=== PATIENT | female | born 1945 | race Caucasian/White ===

== ENCOUNTER 2016-10-14 13:12 | Emergency (ER) | payer BC, MEDICARE ==
[2016-10-14] MEDS ORDERED: Nitroglycerin 2% Ointment 1 INCH/1 GM Packet ONE (13:38)
[2016-10-14 13:45] LABS: #Basophils 0.1 thou/uL (0.0-0.2); #Eosinphils 0.1 thou/uL (0.0-0.7); #Lymphocytes 2.9 thou/uL (1.20-3.40); #Monocytes 0.4 thou/uL (0.11-0.59); #Neutrophils 4.8 thou/uL (1.40-6.50); %Eosinophils 1.6 % (0.0-10.0); %Monocytes 4.9 % (0.0-10.0); Hematocrit 47.8 % (36.0-47.0); Mean Platelet Volume 8.1 fL (7.4-10.4); Red Blood Cell (RBC) Count 5.08 mill/uL (4.20-5.40); White Blood Cell (WBC) Count 8.3 thou/uL (4.8-10.8)
[2016-10-14 13:58] LABS: ALT (SGPT) 12 U/L (0-55); AST (SGOT) 15 U/L (5-34); Alkaline Phosphatase 91 U/L (40-150); Anion Gap 14 mmol/L (10-20); BUN (Urea Nitrogen) 7 mg/dL (9.8-20.1); Bilirubin, Total 0.5 mg/dL (0.2-1.2); CK (CPK) 32 U/L (29-168); Calc. Creatinine Clearance 0 mL/min (70-130); Calcium 9.9 mg/dL (7.8-10.44); Carbon Dioxide 26 mmol/L (23-31); Chloride 102 mmol/L (98-107); Estimated GFR-MDRD 86; Globulin 2.9 g/dL (2.4-3.5); Lipase 33 U/L (8-78); Protein, Total 6.8 g/dL (5.8-8.1); Troponin I Less than 0.010 ng/mL (< 0.028)
--- NOTE | 2016-10-14 15:26 | RAD ---
PORTABLE CHEST: Date: 10/14/16 No prior films available for comparison. An AP portable film at 1333 hours shows a normal sized heart and normal vascularity. There are no ef fusions. No focal infiltrates are seen. Dense overlying breast tissue partially obscures some parenc hymal areas of each lung. No gross infiltrates appreciated. IMPRESSION: No acute findings. POS: HOME
--- NOTE | 2016-10-14 15:51 | ERRECORD ---
HEALTH SYSTEM EMERGENCY RECORD HPI CHEST PAIN (14:11 MBRI) CHIEF COMPLAINT: Patient presents for evaluation of chest pain, that was present but has now resolved. HISTORIAN: History provided by patient, History provided by patient's family. LOCATION: Symptoms are localized, most severe in epigastric area, No radiation of pain, Pain has not moved in location over time. QUALITY: Pain is dull in nature, described as pressure-like. SEVERITY: Maximum severity of symptoms moderate, Currently there are no symptoms. TIME COURSE: Gradual onset of symptoms, Symptoms are improving, are intermittent, Pt with initial episode this am at around 0230 hrs that lasted approx. 45 min and was relieved after she took a full strength asa. She had a repeat episode then later in the am and she again took a full asa. ASSOCIATED WITH: Associated with chills, No associated cough, Associated with diaphoresis, No associated fever, No associated nausea, No associated palpitations, Associated with shortness of breath, No associated trauma, No associated upper respiratory infection, No associated vomiting. EXACERBATED BY: Patient's condition exacerbated by nothing. RELIEVED BY: Patient's condition relieved by nothing. RISK FACTORS: Coronary artery disease risk factors, include family history, include hypertension, include smoking, Thoracic aortic dissection risk factors, include hypertension, No pulmonary embolism risk factors. HEART SCORE: Patients history is Moderately Suspicious (1), Patients ECG is normal (0), Patients age is equal to or greater than 65 years (2), Patient has 1 or 2 risk factors (1), Patients Troponin is equal to or less than 1 times the normal limit (0), Total 4. WELLS CRITERIA FOR PE: No clinical signs and symptoms of a DVT (0), Patient does not have, or is likely to not have, a primary diagnosis of PE (0), Patient's heart rate is less than 100 (0), Patient has no history of immobilization within 3 days, nor any surgical history within the past 4 weeks (0), Patient has not had an objectively diagnosed PE or DVT previously (0), Patient does not have hemoptysis (0), Patient has not had treatment for malignancy within the last 6 months, nor palliative (0), Total 0. ROS (13:23 MBRI) CONSTITUTIONAL: Negative constitutional review of systems, Historian denies chills, denies fever. EYES: Historian denies eye pain, denies photophobia, denies vision changes. ENT: Historian denies dysphagia, denies dysphasia, denies dysphonia, denies rhinorrhea, Historian denies sore throat. &a-1R&a+25V*p+0X*d4292Y*c202B*c15G*c2P*p-0X&a-25V&a+1R Name: Modesta Chaparro : 1945 F70 MedRec: [id number] AcctNum: [id number] Prepared: FriOct 14, 2016 15:45 by Interface Page 1 of 4 pMD [facility] EMERGENCY RECORD CARDIOVASCULAR: Historian reports chest pain, no radiation, Historian reports diaphoresis, denies dyspnea on exertion, denies edema, denies orthopnea, denies paroxysmal nocturnal dyspnea, denies syncope, denies palpitations. lightheadedness noted with the pain event. RESPIRATORY: Historian denies cough, denies shortness of breath, denies sputum, denies stridor, denies wheezing. GI: Negative gastrointestinal review of systems, Historian denies abdominal pain, denies diarrhea, denies nausea, denies vomiting. GENITOURINARY FEMALE: Historian denies dysuria, denies frequency, denies hematuria, denies urinary retention. MUSCULOSKELETAL: Historian denies injury, Denies any musculoskeletal pain. SKIN: Negative skin review of systems, Historian denies skin changes. NEUROLOGIC: Negative neurologic review of systems, Historian denies focal weakness, denies sensory changes. HEMO/LYMPHATIC: Historian denies abnormal blood clotting, denies easy bruising. PAST MEDICAL HISTORY (13:34 LGIB) MEDICAL HISTORY: No past medical history. FEMALE SURGICAL HISTORY: back, Surgical history of appendectomy, Surgical history of hernia repair, Surgical history of hysterectomy, Surgical history of tonsillectomy. PSYCHIATRIC HISTORY: No previous psychiatric history. SOCIAL HISTORY: Patient drinks socially, Patient denies drug use, Patient currently uses tobacco, smokes cigarettes, Patient smokes 1 pack per day. KNOWN ALLERGIES morphine Penicillins CURRENT MEDICATIONS (13:34 LGIB) None VITAL SIGNS VITAL SIGNS: BP: 137/75, Pulse: 72, Resp: 18 (Non-Labored), Pain: 0, O2 sat: 97 on Room Air, Time: 10/14/2016 13:20. (13:20 LGIB) Temp: 98.1 (Oral), Time: 10/14/2016 13:35. (13:35 KMOR) BP: 126/71, Pulse: 69, Resp: 19, Pain: 0, O2 sat: 96 on Room Air, Time: 10/14/2016 13:30. (13:30 KMOR) BP: 123/63, Pulse: 68, Resp: 18, Pain: 0, O2 sat: 94 on Room Air, Time: 10/14/2016 14:01. (14:01 KMOR) BP: 127/67, Pulse: 70, Resp: 16, Pain: 0, O2 sat: 95 on Room Air, Time: 10/14/2016 14:30. (14:30 KMOR) BP: 139/96, Pulse: 93, Resp: 16, Pain: 0, O2 sat: 93 on Room Air, Time: 10/14/2016 14:45. (14:45 KMOR) &a-1R&a+25V*p+0X*[id number]*c202B*c15G*c2P*p-0X&a-25V&a+1R Name: Modesta Chaparro : 1945 F70 MedRec: [id number] AcctNum: [id number] Prepared: FriOct 14, 2016 15:45 by Interface Page 2 of 4 p[facility] EMERGENCY RECORD PHYSICAL EXAM (13:23 MBRI) CONSTITUTIONAL: Vital Signs Reviewed, Nursing notes reviewed. HEAD: Head exam included findings of head atraumatic, normocephalic. EYES: Eye exam included findings of eyelids normal to inspection, Pupils equally round and reactive to light, Extraocular muscles intact. ENT: Pharynx exam normal, Mouth exam normal. NECK: Neck exam normal, Neck exam included findings of normal range of motion, Trachea midline. RESPIRATORY CHEST: Respiratory exam included findings of no respiratory distress, Breath sounds clear, No wheezing, No rales, No rhonchi. CARDIOVASCULAR: Cardiovascular exam included findings of heart rate regular rate and rhythm, Heart sounds normal, normal S1, normal S2, no murmurs, Carotids normal, Abdominal aorta normal, Femoral pulses normal. ABDOMEN FEMALE: Abdominal exam included findings of abdomen nontender, Bowel sounds normal, no distension, no mass, no pulsatile masses, no peritoneal signs, no rigidity, no guarding, no rebound. BACK: Back exam included findings of normal inspection, no tenderness. UPPER EXTREMITY: Upper extremity exam included findings of inspection normal, Range of motion normal, Motor strength normal, Radial pulse normal, no cyanosis, no clubbing, no edema. LOWER EXTREMITY: Lower extremity exam included findings of inspection normal, Range of motion normal, Motor strength normal, Pedal pulse normal, no cyanosis, no clubbing, no edema, Normal pop pulses saniya noted. NEURO: Neuro exam findings include patient oriented to person, place and time, Speech normal, Gait normal. SKIN: Skin exam included findings of skin warm, dry, and normal in color. PSYCHIATRIC: Psychiatric exam included findings of patient oriented to person place and time, Normal affect. EKG INTERPRETATION 12 LEAD EKG INTERPRETATION: 12 lead EKG shows normal sinus rhythm, Rate (beats per minute): 69, with no ectopics, Conduction normal, T waves, inverted, Leads affected: I, Leads affected: aVl, Leads affected: V1, Leads affected: V2, Liberty, indeterminate, Other findings include:, septal and lateral infarct, age undetermined., suspect arm lead reversal. (13:24 MBRI) 12 lead EKG interpreted by Emergency Department Physician at time of study, 12 lead EKG shows normal sinus rhythm, Rate (beats per minute): 69, with no ectopics, Conduction normal, ST segments normal, T waves normal, Liberty normal, Other findings include:, left &a-1R&a+25V*p+0X*i3231R*c202B*c15G*c2P*p-0X&a-25V&a+1R Name: Modesta Chaparro : 1945 F70 MedRec: [id number] AcctNum: [id number] Prepared: FriOct 14, 2016 15:45 by Interface Page 3 of 4 [facility] EMERGENCY RECORD atrial enlargement. (13:31 MBRI) RADIOLOGYINTERPRETATION (14:09 MBRI) CHEST: Films of the chest show, no infiltrate, no pneumothorax, no pleural effusion, no cardiomegaly, no congestive heart failure, Other findings: increased density in the R perihilar region noted. Breast shadow noted saniya. No other acute issues noted. GYM INSTRUCTOR: Preliminary review of x-rays by, ED Physician. MEDICATION ADMINISTRATION SUMMARY Drug Name: Nitro-Bid transdermal, Dose Ordered: 1 inch, Route: Topical, Status: Given, Time: 13:42 10/14/2016, Detailed record available in Medication Service section. DOCTOR NOTES (15:22 MBRI) RE-EVALUATION: The patient's condition has improved, Pain free after meds in ED. TEXT: Pt with CP and at present time clinically stable. Findings include nml CXR, nml EKG without acute findings of STEMI, nml labs at this time. I rec pt for admit and obs for further risk stratification and r/o SC necessitating transfer to higher level of care for evaluation and continued cardiac monitoring. Plan discussed with pt and her family and pt agrees. Pt stable for ground EMS. ASA not given in dept as pt took 2 full ASA at home already today. Case discussed with Dr Negrete, accepted for further care at 1420. PROBLEM LIST No recorded problems DIAGNOSIS (15:21 MBRI) FINAL: PRIMARY: CHEST PAIN UNSPECIFIED. PRESCRIPTION No recorded prescriptions DISPOSITION PATIENT: Disposition Type: Transfer, Disposition: Transfer to [facility], Condition: Fair. (15:21 MBRI) Patient left the department. (15:38 KMOR) Webber: KMOR=KARTHIK Faye, Shelly LGIB=KARTHIK Cline, Gwen MBRI=DO Herrera Matthew &a-1R&a+25V*p+0X*p4063U*c202B*c15G*c2P*p-0X&a-25V&a+1R Name: Modesta Chaparro : 1945 F70 MedRec: [id number] AcctNum: [id number] Prepared: FriOct 14, 2016 15:45 by Interface Page 4 of 4 pMD MTDD
--- NOTE | 2016-10-14 15:57 | PICIS ---
[facility] EMERGENCY RECORD TRIAGE (FriOct 14, 2016 13:20 LGIB) TRIAGE NOTES: CP and dizziness at 0230 this morning. (FriOct 14, 2016 13:20 LGIB) PATIENT: NAME: Modesta Chaparro, AGE: 70, GENDER: female, : Sat 1945, TIME OF GREET: FriOct 14, 2016 13:13, PREFERRED LANGUAGE: Mauritanian, ETHNICITY: Not or , ECODE BILLING MAP: [facility], SSN: [id number], Zip Code: [address], KG WEIGHT: 58.97, PHONE: , , , PERSON ID: [id number]. (FriOct 14, 2016 13:20 LGIB) PAYMENT: [employer]. (14:10) COMPLAINT: chest pain, dizzy. (FriOct 14, 2016 13:20 LGIB) ADMISSION: URGENCY: 2 Emergent, ADMISSION SOURCE: Home, TRANSPORT: CAR, BED: TRIAGE. (FriOct 14, 2016 13:20 LGIB) SIRS SCORING: Heart Rate 55-109 (0), Temp range 96.8-101.1 (0), respiratory rate 12-24 (0), Mental Status altered: no (0), Total SIRS Score 0. (13:38 LGIB) PROVIDERS: TRIAGE NURSE: Gwen Cline RN. (FriOct 14, 2016 13:20 LGIB) KNOWN ALLERGIES morphine Penicillins CURRENT MEDICATIONS (13:34 LGIB) None VITAL SIGNS VITAL SIGNS: BP: 137/75, Pulse: 72, Resp: 18 (Non-Labored), Pain: 0, O2 sat: 97 on Room Air, Time: 10/14/2016 13:20. (13:20 LGIB) Temp: 98.1 (Oral), Time: 10/14/2016 13:35. (13:35 KMOR) BP: 126/71, Pulse: 69, Resp: 19, Pain: 0, O2 sat: 96 on Room Air, Time: 10/14/2016 13:30. (13:30 KMOR) BP: 123/63, Pulse: 68, Resp: 18, Pain: 0, O2 sat: 94 on Room Air, Time: 10/14/2016 14:01. (14:01 KMOR) BP: 127/67, Pulse: 70, Resp: 16, Pain: 0, O2 sat: 95 on Room Air, Time: 10/14/2016 14:30. (14:30 KMOR) BP: 139/96, Pulse: 93, Resp: 16, Pain: 0, O2 sat: 93 on Room Air, Time: 10/14/2016 14:45. (14:45 KMOR) NURSING ASSESSMENT: CARDIOVASCULAR (13:25 LGIB) CONSTITUTIONAL: Complex assessment performed, Patient arrives ambulatory, Gait steady, History obtained from patient, Patient appears comfortable, Patient cooperative, Patient alert, Oriented to person, place and time, Skin warm, Skin dry, Skin normal in color, Mucous membranes pink, Mucous membranes moist, Patient is well-groomed, Patient complains of chest pain, dizzy, PT WOKE UP THIS MORNING WITH CHEST PAIN AT 0230. ALSO HAD DIZZINESS. 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 PT HAD A SECOND EPISODE OF CHEST PAIN AT 1030 THIS MORNING. NO PAIN ON ARRIVAL. PT STATES SHE DOES &a-1R&a+25V*p+0X*d1109Y*c202B*c15G*c2P*p-0X&a-25V&a+1R Name: Modesta Chaparro : 1945 F70 MedRec: [id number] AcctNum: [id number] Prepared: FriOct 14, 2016 15:51 by Interface Page 1 of 10 pMD [facility] EMERGENCY RECORD FEEL DIZZY WHEN SHE STANDS UP. PAIN: cramping pain, to the epigastric region, No pain radiating, Patient rates pain as 0 out of 10, Pain exacerbated by nothing. CARDIOVASCULAR: Cardiovascular assessment findings include heart rate normal, Heart sounds normal, Bilateral blood pressures equal, Left radial pulse +3(easily palpated, considered normal), Right radial pulse +3(easily palpated, considered normal), Left dorsalis pedis pulse +3(easily palpated, considered normal), Right dorsalis pedis pulse +3(easily palpated, considered normal), No associated diaphoresis, no associated dyspnea. RESPIRATORY/CHEST: Breath sounds clear, Respiratory assessment findings include respiratory effort easy, Respirations regular, Conversing normally, Neck and chest exam findings include trachea midline, Chest expansion equal, Chest movement symmetrical, no signs of distress, no retractions noted, no cyanosis. SAFETY: Side rails up, Cart/Stretcher in lowest position, Family at bedside, Call light within reach, Hospital ID band on. NURSING ASSESSMENT: FALL RISK (13:39 LGIB) FALL RISK: Fall risk assessment findings include: no history of falls (0), No bed rest greater than 2 days (0), No use of level of consciousness altering agents with mentation or cognitive changes (0), No change in blood pressure (0), No sensory deficits (0), No impaired mobility (0), No neurologic diagnosis (0), No elimination problems (0), No confusion (0), Total score 0. HENDRICH II FALL RISK: Hendrich II Fall Risk assessment findings include patient not confused, disoriented or impulsive, not symptomatic or depressed, no altered elimination, dizziness or vertigo(1), female, no antiepileptics (anticonvulsants) administered, no Benzodiazepines administered, Total score 1. NURSING ASSESSMENT: SKIN (15:01 KMOR) SKIN: Skin assessment findings include skin warm, Skin dry, Skin normal in color, Inspection findings include: No pressure ulcer to the shoulder, Inspection findings include no pressure ulcer to the elbow, Inspection findings include no pressure ulcers to the hip, Inspection findings include no pressure ulcer to the sacrum, Inspection findings include no pressure ulcer to the heel, Inspection findings include no pressure ulcer, Inspection findings include no pressure ulcer. ARACELI SCALE: (3) Sensory perception slightly limited, (4) Skin is rarely moist, (4) Patient walks frequently, (4) No mobility limitations, (3) Adequate nutrition, (3) Patient has no apparent problem moving, Araceli Risk Total: 21. NURSING PROCEDURE: BEDSIDE RADIOLOGY (13:38 LGIB) BEDSIDE RADIOLOGY: Portable chest x-ray performed. &a-1R&a+25V*p+0X*e9590J*c202B*c15G*c2P*p-0X&a-25V&a+1R Name: Modesta Chaparro : 1945 F70 MedRec: [id number] AcctNum: [id number] Prepared: FriOct 14, 2016 15:51 by Interface Page 2 of 10 D [facility] EMERGENCY RECORD NURSING PROCEDURE: BEDSIDE SIRS TESTING (15:01 KMOR) SCORES: Heart Rate 55-109 (0), Temp range 96.8-101.1 (0), respiratory rate 12-24 (0), Latest WBC 3-14.9 (0), Mental Status altered: no (0), Infection or Suspected Infection: No. NURSING PROCEDURE: CAMPAIGN MARKETING SPECIALIST (13:32 KMOR) PATIENT IDENTIFIER: Patient actively involved in identification process, Patient's identity verified by patient stating name, Patient's identity verified by patient stating date. CAMPAIGN MARKETING SPECIALIST: Cardiac monitoring indicated for complaint of chest pain, Cardiac monitoring indicated for compliant of an irregular heart rate, Patient placed on monitoring specialist, Heart rate: 71, showing normal sinus rhythm, Patient placed on non-invasive blood pressure monitor, with disposable blood pressure cuff applied, Patient placed on continuous pulse oximetry, Adult/pediatric oxisensor applied, Oxygen saturation 100%. NOTES: Patient tolerated procedure well. NURSING PROCEDURE: EKG CHART PATIENT IDENTIFIER: Patient actively involved in identification process, Patient's identity verified by patient stating name, Patient's identity verified by patient stating date. (13:20 KMOR) Patient actively involved in identification process, Patient's identity verified by patient stating name, Patient's identity verified by patient stating date. (13:28 KMOR) EKG: EKG indicated for complaint of chest pain, 12 lead EKG performed on the left chest, done by KARTHIK dunham, first EKG, Notes: completed at 1317. (13:20 KMOR) EKG indicated for complaint of chest pain, 12 lead EKG performed on the left chest, done by KARTHIK Bravo, second EKG. (13:28 KMOR) FOLLOW-UP: After procedure, EKG for interpretation given to Dr. Herrera. (13:20 KMOR) After procedure, EKG for interpretation given to Dr. Herrera, Notes: Repeated due to limb leads. (13:28 KMOR) NOTES: Patient tolerated procedure well. (13:20 KMOR) Patient tolerated procedure well. (13:28 KMOR) NURSING PROCEDURE: IV (13:20 KMOR) PATIENT IDENITIFIER: Patient actively involved in identification process, Patient's identity verified by patient stating name, Patient's identity verified by patient stating date. IV SITE 1: IV therapy indicated for hydration, IV therapy indicated for medication administration, IV established, to the right antecubital, using an 18 gauge catheter, in one attempt, Saline lock established, Flushed with normal saline (mls): 10cc, Labs drawn at time of placement, labeled in the presence of the patient and sent to lab. FOLLOW-UP SITE 1: After procedure, 2x3 ensure dressing applied, After procedure, no drainage at IV site, After procedure, no swelling &a-1R&a+25V*p+0X*m2646W*c202B*c15G*c2P*p-0X&a-25V&a+1R Name: Modesta Chaparro : 1945 F70 MedRec: [id number] AcctNum: [id number] Prepared: FriOct 14, 2016 15:51 by Interface Page 3 of 10 pMD [facility] EMERGENCY RECORD at IV site, After procedure, no redness at IV site. NOTES: Patient tolerated procedure well. NURSING PROCEDURE: NURSE NOTES NURSES NOTES: Notes: PT RESTING, AWAITING RESULTS, NAD. (13:38 LGIB) Notes: PER DR HERRERA, NO ASPIRIN TO BE ADMINISTERED SINCE PATIENT HAD 2 FULL STRENGTH ASPIRIN TABLETS THIS MORNING. (13:40 LGIB) Patient assisted to bathroom with steady gait. (14:11 LGIB) ORDER DETAILS Order Name: CAMPAIGN MARKETING SPECIALIST ED, Status: Done, Time: 13:37 10/14/2016, User: KORY, - Ordered for: DO Herrera Matthew, - Entered by: DO Herrera Matthew - FriOct 14, 2016 13:35, - Quantity: 1, Order Name: Cardiac Profile w/CKMB & Troponin - I, Status: Active, Time: 13:35 10/14/2016, User: BETI, - Ordered for: DO Herrera Matthew, - Entered by: DO Herrera Matthew - FriOct 14, 2016 13:35, - Quantity: 1, Order Name: CBC with Differential, Status: Active, Time: 13:35 10/14/2016, User: BETI, - Ordered for: DO Herrera Matthew, - Entered by: DO Herrera Matthew - FriOct 14, 2016 13:35, - Quantity: 1, Order Name: CK (CPK), Status: Active, Time: 13:35 10/14/2016, User: BETI, - Ordered for: DO Herrera Matthew, - Entered by: DO Herrera Matthew - Burton Oct 14, 2016 13:35, - Quantity: 1, Order Name: Comprehensive Metabolic Panel, Status: Active, Time: 13:35 10/14/2016, User: BETI, - Ordered for: DO Herrera Matthew, - Entered by: DO Herrera Matthew - [place] Oct 14, 2016 13:35, - Quantity: 1, Order Name: EKG 12 Lead in Emergency Room, Status: Active, Time: 13:35 10/14/2016, User: BETI, - Ordered for: DO Herrera Matthew, - Entered by: DO Herrera Matthew - [place] Oct 14, 2016 13:35, - Quantity: 1, Order Name: Lipase, Status: Active, Time: 13:35 10/14/2016, User: BETI, - Ordered for: DO Herrera Matthew, - Entered by: DO Herrera Matthew - [place] Oct 14, 2016 13:35, - Quantity: 1, Order Name: SALINE LOCK, Status: Done, Time: 13:37 10/14/2016, User: KORY, - Ordered for: DO Herrera Matthew, &a-1R&a+25V*p+0X*u0436N*c202B*c15G*c2P*p-0X&a-25V&a+1R Name: Modesta Chaparro : 1945 F70 MedRec: [id number] AcctNum: [id number] Prepared: FriOct 14, 2016 15:51 by Interface Page 4 of 10 pMD [facility] EMERGENCY RECORD - Entered by: DO Herrera Matthew - FriOct 14, 2016 13:35, - Quantity: 1, Order Name: XR Chest 1 View Portable, Status: Active, Time: 13:35 10/14/2016, User: BETI, - Ordered for: DO Herrera Matthew, - Entered by: DO Herrera Matthew - [place] Oct 14, 2016 13:35, - Quantity: 1. MEDICATION ADMINISTRATION SUMMARY Drug Name: Nitro-Bid transdermal, Dose Ordered: 1 inch, Route: Topical, Status: Given, Time: 13:42 10/14/2016, Detailed record available in Medication Service section. MEDICATION SERVICE (13:42 MBRI) Nitro-Bid transdermal: Order: Nitro-Bid transdermal (nitroglycerin) - Dose: 1 inch : Topical Ordered by: Serafin Herrera DO Entered by: Serafin Herrera DO FriOct 14, 2016 13:35 , Acknowledged by: Shelly Faye RN FriOct 14, 2016 13:37 Documented as given by: Shelly Faye RN FriOct 14, 2016 13:42 Patient, Medication, Dose, Route and Time verified prior to administration. Amount given: 1 inch, Correct patient, time, route, dose and medication confirmed prior to administration, Patient advised of actions and side-effects prior to administration, Allergies confirmed and medications reviewed prior to administration, Advised not to ambulate without assistance, Patient in position of comfort, Side rails up, Cart in lowest position, Family at bedside. HPI CHEST PAIN (14:11 MBRI) CHIEF COMPLAINT: Patient presents for evaluation of chest pain, that was present but has now resolved. HISTORIAN: History provided by patient, History provided by patient's family. LOCATION: Symptoms are localized, most severe in epigastric area, No radiation of pain, Pain has not moved in location over time. QUALITY: Pain is dull in nature, described as pressure-like. SEVERITY: Maximum severity of symptoms moderate, Currently there are no symptoms. TIME COURSE: Gradual onset of symptoms, Symptoms are improving, are intermittent, Pt with initial episode this am at around 0230 hrs that lasted approx. 45 min and was relieved after she took a full strength asa. She had a repeat episode then later in the am and she again took a full asa. ASSOCIATED WITH: Associated with chills, No associated cough, Associated with diaphoresis, No associated fever, No associated nausea, No associated palpitations, Associated with &a-1R&a+25V*p+0X*b1817Z*c202B*c15G*c2P*p-0X&a-25V&a+1R Name: Modesta Chaparro : 1945 F70 MedRec: [id number] AcctNum: [id number] Prepared: FriOct 14, 2016 15:51 by Interface Page 5 of 10 pMD [facility] EMERGENCY RECORD shortness of breath, No associated trauma, No associated upper respiratory infection, No associated vomiting. EXACERBATED BY: Patient's condition exacerbated by nothing. RELIEVED BY: Patient's condition relieved by nothing. RISK FACTORS: Coronary artery disease risk factors, include family history, include hypertension, include smoking, Thoracic aortic dissection risk factors, include hypertension, No pulmonary embolism risk factors. HEART SCORE: Patients history is Moderately Suspicious (1), Patients ECG is normal (0), Patients age is equal to or greater than 65 years (2), Patient has 1 or 2 risk factors (1), Patients Troponin is equal to or less than 1 times the normal limit (0), Total 4. WELLS CRITERIA FOR PE: No clinical signs and symptoms of a DVT (0), Patient does not have, or is likely to not have, a primary diagnosis of PE (0), Patient's heart rate is less than 100 (0), Patient has no history of immobilization within 3 days, nor any surgical history within the past 4 weeks (0), Patient has not had an objectively diagnosed PE or DVT previously (0), Patient does not have hemoptysis (0), Patient has not had treatment for malignancy within the last 6 months, nor palliative (0), Total 0. ROS (13:23 MBRI) CONSTITUTIONAL: Negative constitutional review of systems, Historian denies chills, denies fever. EYES: Historian denies eye pain, denies photophobia, denies vision changes. ENT: Historian denies dysphagia, denies dysphasia, denies dysphonia, denies rhinorrhea, Historian denies sore throat. CARDIOVASCULAR: Historian reports chest pain, no radiation, Historian reports diaphoresis, denies dyspnea on exertion, denies edema, denies orthopnea, denies paroxysmal nocturnal dyspnea, denies syncope, denies palpitations. lightheadedness noted with the pain event. RESPIRATORY: Historian denies cough, denies shortness of breath, denies sputum, denies stridor, denies wheezing. GI: Negative gastrointestinal review of systems, Historian denies abdominal pain, denies diarrhea, denies nausea, denies vomiting. GENITOURINARY FEMALE: Historian denies dysuria, denies frequency, denies hematuria, denies urinary retention. MUSCULOSKELETAL: Historian denies injury, Denies any musculoskeletal pain. SKIN: Negative skin review of systems, Historian denies skin changes. NEUROLOGIC: Negative neurologic review of systems, Historian denies focal weakness, denies sensory changes. HEMO/LYMPHATIC: Historian denies abnormal blood clotting, denies easy bruising. &a-1R&a+25V*p+0X*a9696E*c202B*c15G*c2P*p-0X&a-25V&a+1R Name: Modesta Chaparro : 1945 F70 MedRec: [id number] AcctNum: [id number] Prepared: FriOct 14, 2016 15:51 by Interface Page 6 of 10 pMD [facility] EMERGENCY RECORD PAST MEDICAL HISTORY (13:34 LGIB) MEDICAL HISTORY: No past medical history. FEMALE SURGICAL HISTORY: back, Surgical history of appendectomy, Surgical history of hernia repair, Surgical history of hysterectomy, Surgical history of tonsillectomy. PSYCHIATRIC HISTORY: No previous psychiatric history. SOCIAL HISTORY: Patient drinks socially, Patient denies drug use, Patient currently uses tobacco, smokes cigarettes, Patient smokes 1 pack per day. PHYSICAL EXAM (13:23 MBRI) CONSTITUTIONAL: Vital Signs Reviewed, Nursing notes reviewed. HEAD: Head exam included findings of head atraumatic, normocephalic. EYES: Eye exam included findings of eyelids normal to inspection, Pupils equally round and reactive to light, Extraocular muscles intact. ENT: Pharynx exam normal, Mouth exam normal. NECK: Neck exam normal, Neck exam included findings of normal range of motion, Trachea midline. RESPIRATORY CHEST: Respiratory exam included findings of no respiratory distress, Breath sounds clear, No wheezing, No rales, No rhonchi. CARDIOVASCULAR: Cardiovascular exam included findings of heart rate regular rate and rhythm, Heart sounds normal, normal S1, normal S2, no murmurs, Carotids normal, Abdominal aorta normal, Femoral pulses normal. ABDOMEN FEMALE: Abdominal exam included findings of abdomen nontender, Bowel sounds normal, no distension, no mass, no pulsatile masses, no peritoneal signs, no rigidity, no guarding, no rebound. BACK: Back exam included findings of normal inspection, no tenderness. UPPER EXTREMITY: Upper extremity exam included findings of inspection normal, Range of motion normal, Motor strength normal, Radial pulse normal, no cyanosis, no clubbing, no edema. LOWER EXTREMITY: Lower extremity exam included findings of inspection normal, Range of motion normal, Motor strength normal, Pedal pulse normal, no cyanosis, no clubbing, no edema, Normal pop pulses saniya noted. NEURO: Neuro exam findings include patient oriented to person, place and time, Speech normal, Gait normal. SKIN: Skin exam included findings of skin warm, dry, and normal in color. PSYCHIATRIC: Psychiatric exam included findings of patient oriented to person place and time, Normal affect. LAB INTERPRETATION (14:09 MBRI) INTERPRETATION: I reviewed the lab results. &a-1R&a+25V*p+0X*k5421V*c202B*c15G*c2P*p-0X&a-25V&a+1R Name: Modesta Chaparro : 1945 F70 MedRec: [id number] AcctNum: [id number] Prepared: FriOct 14, 2016 15:51 by Interface Page 7 of 10 D [facility] EMERGENCY RECORD EVENTS TRANSFER: Triage to Emergency Triage. (FriOct 14, 2016 13:20 LGIB) Emergency Triage to Emergency Room -01. (13:20 LGIB) Removed from Emergency Emergency Room -01. (15:38 KMOR) RADIOLOGYINTERPRETATION (14:09 MBRI) CHEST: Films of the chest show, no infiltrate, no pneumothorax, no pleural effusion, no cardiomegaly, no congestive heart failure, Other findings: increased density in the R perihilar region noted. Breast shadow noted saniya. No other acute issues noted. 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 EKG INTERPRETATION 12 LEAD EKG INTERPRETATION: 12 lead EKG shows normal sinus rhythm, Rate (beats per minute): 69, with no ectopics, Conduction normal, T waves, inverted, Leads affected: I, Leads affected: aVl, Leads affected: V1, Leads affected: V2, [place], indeterminate, Other findings include:, septal and lateral infarct, age undetermined., suspect arm lead reversal. (13:24 MBRI) 12 lead EKG interpreted by Emergency Department Physician at time of study, 12 lead EKG shows normal sinus rhythm, Rate (beats per minute): 69, with no ectopics, Conduction normal, ST segments normal, T waves normal, [place] normal, Other findings include:, left atrial enlargement. (13:31 MBRI) O2SAT INTERPRETATION (13:23 MBRI) O2SAT: Oxygen saturation interpretation: Normal. DOCTOR NOTES (15:22 MBRI) RE-EVALUATION: The patient's condition has improved, Pain free after meds in ED. TEXT: Pt with CP and at present time clinically stable. Findings include nml CXR, nml EKG without acute findings of STEMI, nml labs at this time. I rec pt for admit and obs for further risk stratification and r/o MS necessitating transfer to higher level of care for evaluation and continued cardiac monitoring. Plan discussed with pt and her family and pt agrees. Pt stable for ground EMS. ASA not given in dept as pt took 2 full ASA at home already today. Case discussed with Dr Negrete, accepted for further care at 1420. PROBLEM LIST No recorded problems DIAGNOSIS (15:21 MBRI) FINAL: PRIMARY: CHEST PAIN UNSPECIFIED. DISPOSITION &a-1R&a+25V*p+0X*x5155E*c202B*c15G*c2P*p-0X&a-25V&a+1R Name: Modesta Chaparro : 1945 F70 MedRec: [id number] AcctNum: [id number] Prepared: FriOct 14, 2016 15:51 by Interface Page 8 of 10 pMD [facility] EMERGENCY RECORD PATIENT: Disposition Type: Transfer, Disposition: Transfer to [facility], Condition: Fair. (15:21 MBRI) Patient left the department. (15:38 KMOR) PRESCRIPTION No recorded prescriptions IMAGING MONITOR STRIPS: Image captured from scanner. (13:36 KMOR) *EKG: Image captured from scanner. (13:36 KMOR) EKG 2: Image captured from scanner. (13:37 KMOR) RESULTS (14:02 MBRI) LABORATORY: Cardiac Profile w/CKMB & TropI Collection DT: FriOct 14, 2016 13:40, CKMB 0.7 ng/mL, Range (0-6.6), Troponin I Less than 0.010 ng/mL, Range (< 0.028), Reference Range , 0.00 - 0.028 ng/mL Negative 0.029 - 0.29 ng/mL , Indeterminate Greater or Equal to 0.3 ng/mL Strongly suggests MS , . Lipase Collection DT: FriOct 14, 2016 13:40, Lipase 33 U/L, Range (8-78). CK (CPK) Collection DT: FriOct 14, 2016 13:40, CK (CPK) 32 U/L, Range (29-168). Comprehensive Metabolic Panel Collection DT: FriOct 14, 2016 13:40, Sodium 138 mmol/L, Range (136-145), Potassium 3.8 mmol/L, Range (3.5-5.1), Chloride 102 mmol/L, Range (98-107), Carbon Dioxide 26 mmol/L, Range (23-31), Anion Gap 14 mmol/L, Range (10-20), *BUN (Urea Nitrogen) 7 - L mg/dL, Range (9.8-20.1), Creatinine 0.68 mg/dL, Range (0.6-1.1), Estimated GFR-MDRD 86 , Reference Range for Estimated GFR: Greater than 90, mL/min/1.73 m2 NOTE: The MDRD equation has not been validated for use, with the elderly (over 70 years of age), women, patients with, serious comorbid condition or persons with extremes of body size, muscle, mass, or nutritional status. , Glucose 90 mg/dL, Range (80-115), Calcium 9.9 mg/dL, Range (7.8-10.44), Bilirubin, Total 0.5 mg/dL, Range (0.2-1.2), Protein, Total 6.8 g/dL, Range (5.8-8.1), NOTE: Plasma values are generally 0.3 to 0.5 g/dL higher than serum values, due to the presence of fibrinogen. , Albumin 3.9 g/dL, Range (3.4-4.8), &a-1R&a+25V*p+0X*s9091Q*c202B*c15G*c2P*p-0X&a-25V&a+1R Name: Modesta Chaparro : 1945 F70 MedRec: [id number] AcctNum: [id number] Prepared: FriOct 14, 2016 15:51 by Interface Page 9 of 10 pMD [facility] EMERGENCY RECORD Globulin 2.9 g/dL, Range (2.4-3.5), Alb/Glob Ratio 1.3 g/dL, Range (1.2-2.2), Alkaline Phosphatase 91 U/L, Range (40-150), AST (SGOT) 15 U/L, Range (5-34), ALT (SGPT) 12 U/L, Range (0-55). CBC with Differential Collection DT: FriOct 14, 2016 13:40, White Blood Cell (WBC) Count 8.3 thou/uL, Range (4.8-10.8), Red Blood Cell (RBC) Count 5.08 mill/uL, Range (4.20-5.40), Hemoglobin 14.9 g/dL, Range (12.0-16.0), *Hematocrit 47.8 - H %, Range (36.0-47.0), Mean Corpuscular Volume 94.1 fl, Range (81.0-99.0), Mean Corpuscular Hemoglobin 29.4 pg, Range (27.0-31.0), *Mean Corpuscular HGB CONC 31.2 - L g/dL, Range (32.0-36.0), RBC Distribution Width 12.2 %, Range (11.5-14.5), Platelet Count 326 thou/uL, Range (130-400), Mean Platelet Volume 8.1 fL, Range (7.4-10.4), %Neutrophils 57.2 %, Range (42.0-75.0), %Lymphocytes 35.3 %, Range (21.0-51.0), %Monocytes 4.9 %, Range (0.0-10.0), %Eosinophils 1.6 %, Range (0.0-10.0), %Basophils 1.0 %, Range (0.0-1.0), #Neutrophils 4.8 thou/uL, Range (1.40-6.50), #Lymphocytes 2.9 thou/uL, Range (1.20-3.40), #Monocytes 0.4 thou/uL, Range (0.11-0.59), #Eosinphils 0.1 thou/uL, Range (0.0-0.7), #Basophils 0.1 thou/uL, Range (0.0-0.2). Webber: MADHUOR=KARTHIK Faye, Shelly LGIB=KARTHIK Cline, Gwen MBRI=DO Herrera Matthew &a-1R&a+25V*p+0X*h4485T*c202B*c15G*c2P*p-0X&a-25V&a+1R Name: Modesta Chaparro : 1945 F70 MedRec: [id number] AcctNum: [id number] Prepared: FriOct 14, 2016 15:51 by Interface Page 10 of 10 pMD [facility]TDD
== END 2016-10-14 15:35 | disposition short-term general hospital (02) ==
LOC: BURERS 13:12
DX: R07.9 Chest pain, unspecified (principal); F17.210 Nicotine dependence, cigarettes, uncomplicated
CPT/HCPCS: 71010; 80053; 82550; 82553; 83690; 84484; 85025; 93005